=== PATIENT | female | born 1970 | race Caucasian/White ===

== ENCOUNTER → 2017-08-24 | Outpatient (CLI) | payer MEDICAID ==
[~2017-08-24] MED LIST: AMIT25TA PO; DIPH1TAB PO; DULO30CA2 PO; ERGO500017 PO; ESOM40CA PO; GABA300C10 PO; LISI-170 PO; METH40TA3 PO; MORPHINE ER PO; MORPHINE IR PO
== END | disposition home or self-care (01) ==
LOC: RAD 08:50
PROVIDERS: ATTEND Neurological Surgery
DX: D43.1 Neoplasm of uncertain behavior of brain, infratentorial (principal); D32.0 Benign neoplasm of cerebral meninges
CPT/HCPCS: 70553